=== PATIENT | male | born 1930 | race Caucasian/White ===

== ENCOUNTER 2017-07-13 09:45 | Outpatient (RCR) | payer MEDICARE, OTHER ==
[2016-10-25 09:56] VITALS: BMI 28.2
[~2017-07-13 09:45] MED LIST: ACET-2043 PO; ACET650T40 PO; ALBU8.5H IH; ALBU8.5H12 IH; ALE70 PO; AMOX-559 PO; AMOX1TAB9 PO; ASP81 PO; ASPI-1471 PO; ASPI-715 PO; CA C1TAB85 PO; CALC-515 PO; CALC-774 PO; CALC-854 PO; CALC200 PO; CEF300 PO; CEFU250S6 PO; CHOL200051 PO; CHOL200074 PO; CHOL500025 PO; CLI150 PO; CLIN150C15 PO; ENOX80DI8 SQ; ERGO500029 PO; EZET10TA41 PO; FAM20 PO; GLUCOSAMINE; GUAI600T57 PO; GUALA600 PO; HYDR12.558 PO; HYDROCHLOROTHIAZIDE PO; HYPR15DR27 OU; IBU600 PO; LOR5/325 PO; LUTE20CA11 PO; LUTE20TA PO; MELO-205 PO; METO25TA93 PO; MULTIVITAMIN; NAPR-1043 PO; OMEG-36 PO; PAN40 PO; PANT40TA65 PO; PRED-314 PO; PRED20TA6 PO; PROP60CA28 PO; ROS10 FT; ROS10 PO; ROSU20TA23 PO; SIMV10TA98 PO; SPIR1TAB26 PO; SPIR1TAB28 PO; SPIR25TA78 PO; TIO18R INH; TRIA10.8; TUM500 PO; UBID100T PO; UBID1CAP94 PO; UBID30CA27 PO; UBID50TA3 PO; WARF-18 PO; WARF7.5T32 PO; [UNRECOGNIZED DRUG - CODE] PO; [UNRECOGNIZED DRUG - CODE] PO; [UNRECOGNIZED DRUG - OTHER] PO
--- NOTE | 2017-07-15 10:37 | SWALLOW EVALUATION ---
SPEECH THERAPY ASSESSMENT Physician: Narendra Tobar Clinician: Piper Mart MS, CCC-MANAGER WORKERS COMPENSATION Type of Assessment: Dysphagia Evaluation Patient: Jermaine Rankin : 1930, 87yrs Evaluation Date: 07-13-17 BACKGROUND The patient is an 87 [address] male[address] An [address] swallow evaluation was ordered to further evaluate swallow structure and function. Pt has a MDHx significant for severe esophageal dysphagia with LPR with aspiration resulting in pneumonia within the last year. An MBS was performed on 07-07-17 with the following results: MBS Results 07-07-17 Aspiration Risk: Elevated d/t history of LPR with hospitalization d/t aspirated emesis resulting in pneumonia. Pt reports difficulty coordinating breath/ swallow/LPR with resulting aspiration. 1.Dysphagia Severity Rating Scale (Gramigna, 2006; Talha et. al., 1990): 3; Mild-moderate dysphagiapotential for aspiration exists but is diminished by specific swallow techniques and a modified diet. 2.No modification in consistency of diet is indicated. 3. Speech Therapy is recommended to address oral dysphagia with increased risk of aspiration d/t poor respiratory/swallow coordination. Oxygen Supplementation: 4 Level of Consciousness: Non altered Cognitive/Linguistic: intact Orientation: x4 Language: -expressive: nonaphasic -receptive: nonaphasic Speech: -non-apraxic -non-dysarthric Voice -Dysphonia: none -Nasal emission: No -Hypernasality: No -Wet Vocal Quality: No Non-verbal Oral Structure and Function: within functional limits for speech and swallow Pain with Swallow: Denies. ST ASSESSMENT SUMMARY DYSPHAGIA Outpatient Speech therapy for dysphagia treatment is indicated as medically necessary based on the results of the MBS. Speech Therapy is recommended to address oral dysphagia with increased risk of aspiration d/t poor respiratory/ swallow coordination. RECOMMENDATIONS 1. Speech Therapy: The patient would benefit from ST 2wk4 to address the above described concerns POC Short Term Goals Pt will demonstrate independence with strategies/techniques to manage LPR and respiratory/swallow coordination for decreased risk of aspiration. Social Media Senior Associate Goals Pt will demonstrate decreased risk of aspiration. Thank you for this referral. Please call [phone] Piper Mart M.S., CCC-MANAGER WORKERS COMPENSATION Physician Signature Date MTDD
[2017-07-28] MEDS ORDERED: WARF-18 PO (13:30)
== END 2017-07-13 18:00 | disposition home or self-care (01) ==
LOC: ST 09:45
PROVIDERS: ATTEND Internal Medicine
DX: R13.10 Dysphagia, unspecified (principal)

== ENCOUNTER 2017-09-16 01:32 | Day surgery (SDC) | payer MEDICARE, OTHER ==
[2016-10-25 09:56] VITALS: Ht 167.6 cm; Wt 78.5 kg
[~2017-09-16] VITALS: Ht 167.6 cm; Wt 78.5 kg
[2017-09-16] VITALS (7 sets, daily range): BP systolic 103–141; BP diastolic 61–75
[~2017-09-16 01:32] MED LIST changes: -WARF-18 PO; +WARF5TAB23 PO
[2017-09-16 11:03] LABS: INR 1.08
[2017-09-16] MEDS ORDERED: METO25TA23 PO (13:46)
[2017-09-16] MEDS ORDERED: ALBUTEROL/IPRATROPIUM 3 ML NEB ONE (13:47)
[2017-09-16] MEDS ORDERED: LIDOCAINE/SOD BICARB 8.4% SYR ID ONE (13:50)
[2017-09-16] MEDS ORDERED: MIDAZOLAM 2 MG/2 ML VIAL IVP PRN (13:50)
[2017-09-16] MEDS ORDERED: NORMOSOL R SOLN(*) 1000 ML BAG 1,000 ML IV PRN (13:50)
== END 2017-09-16 17:20 | disposition home or self-care (01) ==
LOC: OR 01:32
PROVIDERS: ATTEND Internal Medicine Gastroenterology
DX: K44.9 Diaphragmatic hernia without obstruction or gangrene (principal); K20.9 Esophagitis, unspecified; K29.70 Gastritis, unspecified, without bleeding; K31.7 Polyp of stomach and duodenum; K22.2 Esophageal obstruction
CPT/HCPCS: 36415; 43239; 43248; 85610; 88305; 88313; 88344; 94640; J7620

== ENCOUNTER 2017-10-14 01:28 | Day surgery (SDC) | payer MEDICARE, OTHER ==
[2016-10-25 09:56] VITALS: Ht 167.6 cm; Wt 78.5 kg
[~2017-10-14] VITALS: Ht 167.6 cm; Wt 78.5 kg
[2017-10-14] VITALS (7 sets, daily range): BP systolic 96–122; BP diastolic 54–74
[~2017-10-14 01:28] MED LIST changes: +METO25TA23 PO; +WARF7.5T13 PO; -WARF7.5T32 PO
[2017-10-14 11:56] LABS: INR 1.05
[2017-10-14] MEDS ORDERED: LIDOCAINE/SOD BICARB 8.4% SYR ID ONE (12:05)
[2017-10-14] MEDS ORDERED: NORMOSOL R SOLN(*) 1000 ML BAG 1,000 ML IV PRN (12:05)
[2017-10-14] MEDS ORDERED: LIDOCAINE MPF 1% 5 ML VIAL ONE (12:24)
[2017-10-14] MEDS ORDERED: PROPOFOL EMUL(*) 10MG/ML 20 ML 40 ML ONE (12:24)
[2017-10-14] MEDS ORDERED: DIATRIZOATE MEGL/DIATRIZOA SOD 367 MG/ML SOLN ONE (14:20)
--- NOTE | 2017-10-14 15:42 | RADIOLOGY IMAGING REPORT ---
FACILITY: [facility] - [place] PATIENT NAME: Jermaine Rankin : 1930 MR: [id number] V: [id number] EXAM DATE: ORDERING PHYSICIAN: FLORINA PURCELL TECHNOLOGIST: Location: [facility] [place] Patient: Jermaine Rankin : 1930 Visit/Account:[id number] Date of Sevice: 10/14/2017 EXAMINATION: CT chest without IV contrast HISTORY: Status post esophageal dilatation, mucosal tear/disruption noted during the dilatation. E xclude esophageal perforation. Clip placed under endoscopy in region of the mucosal tear. TECHNIQUE: CT was obtained through the chest without intravenous contrast. Sagittal and coronal MP R reformatted images were generated. Oral contrast was ingested. One of the following dose optimization techniques was utilized in the performance of this exam: autom ated exposure control; adjustment of the mA and/or kV according to patient size; or use of iterative reconstruction technique. Specific details can be referenced in the facility's radiology CT exam ope rational policy. COMPARISON: October 27, 2016 FINDINGS: Lower neck: Normal. Heart / pericardium/aorta/great vessels: Aortic annulus and potential aortic valve calcification. C oronary artery calcifications. Mildly aneurysmal ascending aorta measures 4.7 cm similar to prior. Mediastinum: Contrast within the esophagus. No extraluminal contrast extravasation. Small to modera te sized hiatal hernia as before. A clip is present within the lumen of the distal esophagus, coronal image 58. Equivocal thickening o f the distal esophageal wall, coronal image 59. Lymph node assessment: Tiny calcified lymph node lateral to the mid to lower esophagus on the left, a xial image 52. No enlarged or abnormal appearing lymph nodes. Pleura: Trace unchanged left pleural fluid versus chronic pleural thickening. Lungs: Mild unchanged emphysema. Unchanged curvilinear scarring in the left upper lobe. Mild right and minimal left peripheral groundglass opacification in the lower lobes. This is unchanged on the left. There was more extensive opacification of the right lower lobe on the prior which limits evalu ation for interval change on the right. Upper abdomen: Punctate right renal calculus noted. Chest wall: Normal. Musculoskeletal: No fracture or osseous destruction. IMPRESSION: 1. No esophageal perforation identified. 2. Endoscopically placed clip within the distal esophageal lumen. 3. Small to moderate-sized unchanged hiatal hernia. 4. Mild emphysema. 5. Right greater than left peripheral lower lobe groundglass opacification which may represent atele ctasis or mild pulmonary fibrosis. 6. Unchanged mildly aneurysmal ascending aorta measuring 4.7 cm. Report Dictated By: Solomon Brantley MD at 10/14/2017 3:24 PM Report E-Signed By: Solomon Brantley MD at 10/14/2017 3:38 PM WSN:[email or web address]
== END 2017-10-14 16:00 | disposition home or self-care (01) ==
LOC: OR 01:28
PROVIDERS: ATTEND Internal Medicine Gastroenterology
DX: K44.9 Diaphragmatic hernia without obstruction or gangrene (principal); K20.9 Esophagitis, unspecified; K22.2 Esophageal obstruction; K29.70 Gastritis, unspecified, without bleeding
CPT/HCPCS: 36415; 43239; 43249; 71250; 85610; J2001; J2704

== ENCOUNTER 2017-11-11 00:26 | Day surgery (SDC) | payer MEDICARE, OTHER ==
[2016-10-25 09:56] VITALS: Ht 167.6 cm; Wt 78.9 kg
[~2017-11-11] VITALS: Ht 167.6 cm; Wt 78.9 kg
[2017-11-11] MEDS ORDERED: NORMOSOL R SOLN(*) 1000 ML BAG 1,000 ML IV PRN (11:30)
[2017-11-11] MEDS ORDERED: LIDOCAINE/SOD BICARB 8.4% SYR ID ONE (11:30)
[2017-11-11] MEDS ORDERED: PROPOFOL EMUL(*) 10MG/ML 20 ML 20 ML ONE (11:37)
[2017-11-11 12:01] VITALS: BP 130/81
[2017-11-11 12:40] VITALS: BP 82/54
[2017-11-11 13:15] VITALS: BP 109/65
[2017-11-11 13:45] VITALS: BP 119/67
[2017-11-11 13:46] VITALS: BP 120/68
== END 2017-11-11 14:09 | disposition home or self-care (01) ==
LOC: OR 00:26
PROVIDERS: ATTEND Internal Medicine Gastroenterology
DX: K44.9 Diaphragmatic hernia without obstruction or gangrene (principal); K20.9 Esophagitis, unspecified; K22.2 Esophageal obstruction; K29.70 Gastritis, unspecified, without bleeding
CPT/HCPCS: 43249; J2704

== ENCOUNTER 2017-12-09 00:49 | Day surgery (SDC) | payer MEDICARE, OTHER ==
[2016-10-25 09:56] VITALS: Ht 167.6 cm; Wt 78.0 kg
[~2017-12-09] VITALS: Ht 167.6 cm; Wt 78.0 kg
[2017-12-09] VITALS (8 sets, daily range): BP systolic 98–128; BP diastolic 60–78
[2017-12-09] MEDS ORDERED: LIDOCAINE/SOD BICARB 8.4% SYR ID ONE (09:30)
[2017-12-09] MEDS ORDERED: NORMOSOL R SOLN(*) 1000 ML BAG 1,000 ML IV PRN (09:30)
[2017-12-09] MEDS ORDERED: PROPOFOL EMUL(*) 10MG/ML 20 ML 40 ML ONE (09:58)
[2018-02-09] MEDS ORDERED: PROP60TA15 PO (09:56)
[2018-02-11] MEDS ORDERED: PROP60TA15 PO (14:49)
== END 2017-12-09 12:40 | disposition home or self-care (01) ==
LOC: OR 00:49
PROVIDERS: ATTEND Internal Medicine Gastroenterology
DX: K22.2 Esophageal obstruction (principal); K44.9 Diaphragmatic hernia without obstruction or gangrene; K31.7 Polyp of stomach and duodenum; G47.33 Obstructive sleep apnea (adult) (pediatric); I71.2 Thoracic aortic aneurysm, without rupture; K29.70 Gastritis, unspecified, without bleeding; H35.30 Unspecified macular degeneration; I50.9 Heart failure, unspecified; I11.0 Hypertensive heart disease with heart failure; E78.00 Pure hypercholesterolemia, unspecified; R60.0 Localized edema; Z86.711 Personal history of pulmonary embolism; Z79.01 Long term (current) use of anticoagulants; Z99.81 Dependence on supplemental oxygen
CPT/HCPCS: 43249; C1726; J2704

== ENCOUNTER 2018-01-25 13:51 | Emergency (ER) | payer MEDICARE, OTHER ==
[2016-10-25 09:56] VITALS: BMI 28.2
--- NOTE | 2018-01-25 14:20 | ER Report ---
History and Physical Time Seen By MD: 14:05 Hx. of Stated Complaint: pt was excersizing around 7:30 this morning, and when he went to sit up he was unable to do so. pt states he had vertigo. pt vomitted. then went to lay down for a bit. (AMAN VENTURA MD) HPI/ROS CHIEF COMPLAINT: Weakness and vertigo HISTORY OF PRESENT ILLNESS: Patient is a very pleasant 88-year-old male who presents to the emergency department with complaint of generalized weakness and positional vertigo that began at 7:45 AM this morning. Patient states he went to bed feeling normally and woke up feeling normal. He states he was doing his morning exercises in bed which are leg strengthening exercises such as leg lifts and stretching. When he finished at 745 he tried to get out of bed but felt weak and felt extremely dizzy with the room spinning when he tried to get up. He noticed that whenever he would move the symptoms seem to get worse. So he remained in bed for approximately 4 hours. After that he decided to come to the emergency department. The dizziness seems to be somewhat better. He noticed no other symptoms. Patient states that he "talked to himself" to make sure his speech appeared normal. He denied any sensory findings other than the vertigo. He denied any focal or unilateral weakness. Patient does have a history of some cardiac dysrhythmias and a PE in 2013 and is currently anticoagulated with Coumadin. His last INR on January 10 was 1.9. REVIEW OF SYSTEMS: Constitutional: No fever, no chills. Eyes: No discharge. ENT: No sore throat. Cardiovascular: No chest pain, no palpitations. Respiratory: No cough, no shortness of breath. Gastrointestinal: Nausea with one episode of vomiting Genitourinary: No hematuria. Musculoskeletal: No back pain. Skin: No rashes. Neurological: Positional vertigo and generalized weakness (AMAN VENTURA MD) Allergies: Coded Allergies: ciprofloxacin (Verified Allergy, Intermediate, BEHAVORIAL CHANGES, 10/24/16) levofloxacin (Verified Allergy, Intermediate, "MESSED WITH MY MIND", ) Home Meds Active Scripts Meclizine Hcl (MECLIZINE HCL) 25 Mg Tablet, 25 MG PO Q8-12H Y for DIZZINESS, # 21 MG Prov:MANSI LLOYD DO 01/25/18 Warfarin Sodium (WARFARIN SODIUM) 5 Mg Tablet, 1 TAB PO QDAY, #30 TAB 9 Refills Take 1 tab daily Prov:RILEY RICHARDS MD 07/28/17 Albuterol Sulfate 90 Mcg/Act (PROAIR HFA 90 MCG/ACT) 8.5 Gm Hfa.aer.ad, 2 PUFF IH Q4-6H, #1 INHALER 8 Refills Prov:RILEY RICHARDS MD 06/24/17 Spironolact/Hydrochlorothiazid (SPIRONOLACTONE-HCTZ 25-25 TAB) 1 Each Tablet, 0.5 TAB PO QDAY, #45 TAB 3 Refills Prov:RILEY RICHARDS MD 06/14/17 Pantoprazole Sodium (PANTOPRAZOLE SODIUM) 40 Mg Tablet.dr, 1 TAB PO QDAY, #180 TAB.SR 4 Refills Prov:RILEY RICHARDS MD 03/01/17 Reported Medications Metoprolol Succinate (METOPROLOL SUCCINATE) 25 Mg Tab.er.24h, 1 TAB PO BID, TAB 09/16/17 Cholecalciferol (Vitamin D3) (D-2000) 2,000 Unit Capsule, 2000 UNIT PO QDAY, CAPSULE 06/24/17 Ubidecarenone (COENZYME Q10) 100 Mg Tablet, 100 MG PO QDAY 06/24/17 Ezetimibe (ZETIA) 10 Mg Tablet, 10 MG PO QDAY, TAB 04/21/17 Calcium Carbonate (TUMS) 200 Mg Tab.chew, 1 TAB.CHEW PO QDAY Y for GAS, TAB.CHEW 07/31/15 Acetaminophen (ACETAMINOPHEN) 500 Mg Tablet, 1 TAB PO Q4-6H Y for PAIN, TAB 07/31/15 Lutein (LUTEIN) 20 Mg Tablet, 1 TAB PO QDAY 07/31/15 Guaifenesin (MUCINEX) 600 Mg Tablet.er, 600 MG PO QAM 03/19/14 Hypromellose (ARTIFICIAL TEARS) 15 Ml Drops, 1-2 ML OU Y for DISCOMFORT 11/08/13 Past Medical/Surgical History Past medical history for peripheral neuropathy, macular degeneration, history of cardiac dysrhythmias with frequent trigeminy, history of peripheral edema, hyperlipidemia, hypertension, thoracic aortic aneurysm, COPD, pulmonary embolism in 2013, gastroesophageal reflux disease, history of mild chronic renal failure with baseline creatinine of 1.3-1.5. (AMAN VENTURA MD) Hx Smoking: Yes Smoking Status: Former Smoker Exposure to Second Hand Smoke?: No Hx Substance Use Disorder: No Hx Alcohol Use: No (AMAN VENTURA MD) Constitutional Vital Sign - Last 24 Hours 01/25/18 01/25/18 01/25/18 01/25/18 13:56 14:00 14:15 14:30 Pulse 72 67 64 64 Resp 18 22 9 30 B/P (MAP) 143/83 125/67 (86) Pulse Ox 93 98 99 O2 Delivery Nasal Cannula 01/25/18 01/25/18 01/25/18 01/25/18 15:11 15:15 15:30 15:45 Pulse 54 55 55 Resp 14 13 17 B/P (MAP) 119/75 (90) 118/69 (85) 117/66 (83) 115/67 (83) Pulse Ox 99 99 98 Intake and Output 01/25/18 01/25/18 01/26/18 15:00 23:00 07:00 Intake Total 500 ml Balance 500 ml (LAURORA,MANSI V DO) Physical Exam General/Constitutional: Patient is awake, alert, nontoxic and in no acute respiratory distress. Head: Normocephalic and atraumatic. Eyes: Conjunctival clear, Pupils are equal and reactive to light. Extraocular muscles are intact and symmetrical. Sclera are clear and anicteric. Ears:External canals are clear. Tympanic membranes are clear with normal landmarks and light reflex. Nares: No rhinorrhea or bleeding. Turbinates are pink and moist. Oropharyngeal: Mucous membranes are moist. There is no pharyngeal erythema or exudate. There are no palatal petechiae. Uvula is midline and symmetrical. Neck: Supple, no adenopathy. Cardiovascular: Heart is regular rate and rhythm without audible murmurs, rubs or gallops. Pulmonary: Lungs are clear to auscultation bilaterally. There are no wheezes, rales, or rhonchi. Chest rise is symmetrical Abdomen: Soft, nontender, no guarding or peritoneal signs. Extremities: No gross deformities, No peripheral cyanosis. Able to move all 4 extremities. Neuro: Alert and oriented X3, Cranial nerves 2 thru 12 are intact and symmetrical. Patient has normal gait. Skin: No rashes, skin is warm dry and well perfused. NIH Stroke Scale: 0 Level of consciousness: Alert -0 Answers both questions correctly-0 Performs both tasks correctly-0 Best Gaze: Normal-0 Visual: No visual loss-0 Facial Palsy: Normal, symmetrical movements-0 Motor Left Arm: No drift for 10 seconds-0 Motor Right Arm: No drift for 10 seconds-0 Motor Left Leg: No drift for 5 seconds-0 Motor Right Leg: No drift for 5 seconds-0 Limb Ataxia: Absent-0 Sensory: Normal, no sensory loss-0 Best Language: Normal, no aphasia-0 Dysarthria: Normal-0 Extinction and Inattention: No abnormality-0 (AMAN VENTURA MD) Medical Decision Making Data Points Result Diagram: 01/25/18 1439 01/25/18 1439 Laboratory Hematology Test 01/25/18 14:39 Red Blood Count 5.13 M/uL (4.00-5.60) Mean Corpuscular Volume 94.3 fL (80.0-96.0) Mean Corpuscular Hemoglobin 31.5 pg (26.0-33.0) Mean Corpuscular Hemoglobin Concent 33.4 g/dL (32.0-36.0) Red Cell Distribution Width 15.5 % (11.5-14.5) Mean Platelet Volume 8.2 fL (7.2-11.1) Neutrophils (%) (Auto) 78.5 % (39.4-72.5) Lymphocytes (%) (Auto) 12.4 % (17.6-49.6) Monocytes (%) (Auto) 8.2 % (4.1-12.4) Eosinophils (%) (Auto) 0.5 % (0.4-6.7) Basophils (%) (Auto) 0.4 % (0.3-1.4) Nucleated RBC Relative Count (auto) 0.0 /100WBC Neutrophils # (Auto) 5.1 K/uL (2.0-7.4) Lymphocytes # (Auto) 0.8 K/uL (1.3-3.6) Monocytes # (Auto) 0.5 K/uL (0.3-1.0) Eosinophils # (Auto) 0.0 K/uL (0.0-0.5) Basophils # (Auto) 0.0 K/uL (0.0-0.1) Nucleated RBC Absolute Count (auto) 0.00 K/uL Prothrombin Time 26.5 seconds (12.0-14.4) Prothromb Time International Ratio 2.39 Activated Partial Thromboplast Time 44 seconds (23-35) Sodium Level 139 mmol/L (137-145) Potassium Level 4.6 mmol/L (3.5-5.0) Chloride Level 99 mmol/L (98-107) Carbon Dioxide Level 33 mmol/L (22-30) Blood Urea Nitrogen 24 mg/dl (9-21) Creatinine 1.30 mg/dl (0.66-1.25) Glomerular Filtration Rate Calc 52.2 Random Glucose 120 mg/dl (75-110) Calcium Level 9.0 mg/dl (8.4-10.2) Total Bilirubin 0.5 mg/dl (0.2-1.3) Aspartate Amino Transf (AST/SGOT) 28 U/L (0-35) Alanine Aminotransferase (ALT/SGPT) 33 U/L (0-56) Alkaline Phosphatase 65 U/L (0-126) Troponin I < 0.012 ng/ml Total Protein 6.4 g/dl (6.3-8.2) Albumin 3.5 g/dl (3.5-5.0) Chemistry Test 01/25/18 14:39 White Blood Count 6.5 k/uL (4.5-11.0) Red Blood Count 5.13 M/uL (4.00-5.60) Hemoglobin 16.2 g/dL (14.0-18.0) Hematocrit 48.4 % (42.0-52.0) Mean Corpuscular Volume 94.3 fL (80.0-96.0) Mean Corpuscular Hemoglobin 31.5 pg (26.0-33.0) Mean Corpuscular Hemoglobin Concent 33.4 g/dL (32.0-36.0) Red Cell Distribution Width 15.5 % (11.5-14.5) Platelet Count 119 K/uL (150-450) Mean Platelet Volume 8.2 fL (7.2-11.1) Neutrophils (%) (Auto) 78.5 % (39.4-72.5) Lymphocytes (%) (Auto) 12.4 % (17.6-49.6) Monocytes (%) (Auto) 8.2 % (4.1-12.4) Eosinophils (%) (Auto) 0.5 % (0.4-6.7) Basophils (%) (Auto) 0.4 % (0.3-1.4) Nucleated RBC Relative Count (auto) 0.0 /100WBC Neutrophils # (Auto) 5.1 K/uL (2.0-7.4) Lymphocytes # (Auto) 0.8 K/uL (1.3-3.6) Monocytes # (Auto) 0.5 K/uL (0.3-1.0) Eosinophils # (Auto) 0.0 K/uL (0.0-0.5) Basophils # (Auto) 0.0 K/uL (0.0-0.1) Nucleated RBC Absolute Count (auto) 0.00 K/uL Prothrombin Time 26.5 seconds (12.0-14.4) Prothromb Time International Ratio 2.39 Activated Partial Thromboplast Time 44 seconds (23-35) Glomerular Filtration Rate Calc 52.2 Calcium Level 9.0 mg/dl (8.4-10.2) Total Bilirubin 0.5 mg/dl (0.2-1.3) Aspartate Amino Transf (AST/SGOT) 28 U/L (0-35) Alanine Aminotransferase (ALT/SGPT) 33 U/L (0-56) Alkaline Phosphatase 65 U/L (0-126) Troponin I < 0.012 ng/ml Total Protein 6.4 g/dl (6.3-8.2) Albumin 3.5 g/dl (3.5-5.0) Coagulation Test 01/25/18 14:39 Prothrombin Time 26.5 seconds Prothromb Time International Ratio 2.39 Activated Partial Thromboplast Time 44 seconds (MANSI LLOYD DO) EKG/Imaging Monitor Interpretation: Normal Sinus Rhythm (AMAN VENTURA MD) ED Course/Re-evaluation Clinical Indication for ER IV: IV Access ED Course 01/25/2018 2:45:42 pm Patient with the NIH stroke scale of 0. History and physical exam more consistent with positional vertigo however the patient does have a history of thromboembolic events. My plan at this time would be to perform a CT scan without contrast to look for any type of hemorrhagic or early signs of stroke. Is negative I would move onto an MRI of the brain to rule out any type of stroke. If negative I would discharge the patient home with a diagnosis of benign positional vertigo (AMAN VENTURA MD) Decision to Disposition Date: Jan 25, 2018 Decision to Disposition Time: 17:07 (MANSI LLOYD DO) Depart Departure Latest Vital Signs Vital Signs Date Time Temp Pulse Resp B/P (MAP) Pulse Ox O2 Delivery O2 Flow Rate FiO2 01/25/18 15:45 55 17 115/67 (83) 98 01/25/18 13:56 Nasal Cannula (MANSI LLOYD DO) Impression: Primary Impression: BPPV (benign paroxysmal positional vertigo) Condition: Improved Disposition: HOME OR SELF-CARE Referrals: RILEY RICHARDS MD (PCP) 2 Days JEFFREY MTZ JR, MD New Scripts Meclizine Hcl (MECLIZINE HCL) 25 Mg Tablet 25 MG PO Q8-12H Y for DIZZINESS, #21 MG Prov: MANSI LLOYD DO 01/25/18 Patient Instructions: Dizziness (GEN) Additional Instructions: Your imaging was stable. No signs of an acute stroke or TIA/ministroke. Follow up with ENT specialist, Dr. Mtz if symptoms continue Meclizine one every 8 hours as needed for dizziness. Return as needed. Problem Qualifiers Primary Impression: BPPV (benign paroxysmal positional vertigo) Laterality: unspecified laterality Qualified Codes: H81.10 - Benign paroxysmal vertigo, unspecified ear AMAN VENTURA MD Jan 25, 2018 14:20 MANSI LLOYD DO Jan 25, 2018 17:06
--- NOTE | 2018-01-25 14:22 | EKG ---
FACILITY: [facility] - [place] PATIENT NAME: GENARO GREENFIELD : [id number] MR: [id number] V: [id number] EXAM DATE: ORDERING PHYSICIAN: AMAN VENTURA TECHNOLOGIST: PARIS Vivar Reason : TIA PRECAUTIONS Blood Pressure : / mmHG Vent. Rate : 063 BPM Atrial Rate : 063 BPM P-R Int : 178 ms QRS Dur : 088 ms QT Int : 402 ms P-R-T Axes : 039 -38 013 degrees QTc Int : 411 ms Normal sinus rhythm Left axis deviation No ST-T abnormalities Relatively unchanged from previous Confirmed by JESSICA GARNETT ([id number]) on 01/25/2018 4:16:57 PM Referred By: LORENZO Confirmed By:JESSICA GARNETT
[2018-01-25] MEDS ORDERED: NS(*) 0.9% 500 ML BAG 500 ML IV ONE (14:50)
[2018-01-25] MEDS ORDERED: MECLIZINE HCL 25 MG TAB PO ONE ×2 (14:50→17:05)
[2018-01-25 14:51] LABS: PLATELET COUNT, AUTOMATED 119 K/uL (150-450)
[2018-01-25 15:05] LABS: INR 2.39
--- NOTE | 2018-01-25 15:22 | RADIOLOGY IMAGING REPORT ---
FACILITY: [facility] - [place] PATIENT NAME: Jermaine Rankin : 1930 MR: [id number] V: [id number] EXAM DATE: ORDERING PHYSICIAN: AMAN VENTURA TECHNOLOGIST: Location: [facility] - [place] Patient: Jermaine Rankin : 1930 Visit/Account:[id number] Date of Sevice: 01/25/[address] scan without contrast COMPARISONS: None ADDITIONAL PERTINENT HISTORY: Weakness TECHNIQUE: Multiple axial images were obtained from the skull base to the vertex without IV contrast . One of the following dose optimization techniques was utilized in the performance of this exam: Aut omated exposure control; adjustment of the mA and/or kV according to the patient's size; or use of an iterative reconstruction technique. Specific details can be referenced in the facility's radiology CT exam operational policy. FINDINGS: Midline shift: Negative Ventricles: Mild enlargement of the lateral and third ventricles. Otherwise negative Brain parenchyma: Patchy hypoattenuation within the periventricular and subcortical white matter, no nspecific but likely representing small vessel ischemic change on a chronic basis. No intraparenchyma l hemorrhage or mass effect. Extra-axial spaces: Mild cerebral atrophy. Intracranial vasculature: Cavernous internal carotid and distal vertebral artery calcifications. Oth erwise negative Osseous structures: Negative Paranasal sinuses and mastoid air cells: Negative Surrounding soft tissues and orbits: Negative IMPRESSION: 1. Age related changes as described above. 2. No evidence of acute intracranial pathology. Report Dictated By: Ray Morales MD at 01/25/2018 3:16 PM Report E-Signed By: Ray Morales MD at 01/25/2018 3:19 PM WSN:[id number]
--- NOTE | 2018-01-25 16:52 | RADIOLOGY IMAGING REPORT ---
FACILITY: [facility] PATIENT NAME: Jermaine Rankin : 1930 MR: [id number] V: [id number] EXAM DATE: ORDERING PHYSICIAN: MANSI LLOYD TECHNOLOGIST: Location: [facility] Patient: Jermaine Rankin : 1930 Visit/Account:[id number] Date of Sevice: 01/25/2018 BRAIN W/O CONTRAST Comparisons: Report from previous exam dated August 05, 2007 Additional pertinent history: Dizziness TECHNIQUE: Multiplanar, multisequence brain MRI was performed without gadolinium contrast. FINDINGS: Sagittal midline structures and craniocervical junction: Negative. Midline shift: None. Ventricles: Mild enlargement of the lateral and third ventricles. Otherwise negative Brain parenchyma: Diffusion weighted imaging: Negative. Gradient sequence: Negative. T2 weighted FLAIR images: Scattered foci of abnormal increased T2 signal within the periventricular and subcortical white matter, nonspecific but likely representing small vessel ischemic change on a chronic basis. Extra-axial spaces: Negative. Dural venous sinuses and major arterial flow voids: Negative. Mastoid air cells and paranasal sinuses: Negative. Surrounding soft tissues and orbits: Negative. Impression: 1. Age related changes as described above. 2. No evidence of acute intracranial pathology. Report Dictated By: Ray Morales MD at 01/25/2018 4:45 PM Report E-Signed By: Ray Morales MD at 01/25/2018 4:48 PM WSN:[id number]
[2018-01-25 17:00] VITALS: BP 119/72
[2018-01-25] MEDS ORDERED: MECL25TA9 PO (17:05)
== END 2018-01-25 17:18 | disposition home or self-care (01) ==
LOC: ER 14:03
DX: H81.10 Benign paroxysmal vertigo, unspecified ear (principal)
CPT/HCPCS: 70450; 70551; 84484; 85025; 85610; 85730; 93005; 96360; 99285; J7040; J8597; 82040; 82247; 82310; 82374; 82435; 82565; 82947; 84075; 84132; 84155; 84295; 84450; 84460; 84520

== ENCOUNTER → 2018-02-15 | Outpatient (CLI) | payer MEDICARE, OTHER ==
[2016-10-25 09:56] VITALS: BMI 28.2
[~2018-02-15] MED LIST changes: +MECL25TA9 PO; +PROP60TA15 PO
--- NOTE | 2018-02-15 14:52 | RADIOLOGY IMAGING REPORT ---
FACILITY: [facility] - [place] PATIENT NAME: Jermaine Rankin : 1930 MR: [id number] V: [id number] EXAM DATE: ORDERING PHYSICIAN: RILEY RICHARDS TECHNOLOGIST: Location: [facility] - [place] Patient: Jermaine Rankin : 1930 Visit/Account:[id number] Date of Sevice: 02/15/2018 Exam type: KNEE 3 VIEW RIGHT History: rt. knee and hip pain Comparison: None. Findings: There is mild narrowing the right patellofemoral joint. No significant narrowing identified along th e medial lateral compartments. This is suggestion of subtle chondrocalcinosis in the lateral compart ment. Mild beaking of the tibial spines. No evidence of acute fracture or dislocation. IMPRESSION: 1. Mild degenerative changes of the right knee as described predominantly involving the patellofemor al joint. Suggestion of subtle chondrocalcinosis of the lateral compartment Report Dictated By: Allison Funez MD at 02/15/2018 2:47 PM Report E-Signed By: Allison Funez MD at 02/15/2018 2:48 PM WSN:[email or web address]
--- NOTE | 2018-02-15 14:57 | RADIOLOGY IMAGING REPORT ---
FACILITY: [facility] [place] PATIENT NAME: Jermaine Rankin : 1930 MR: [id number] V: [id number] EXAM DATE: ORDERING PHYSICIAN: RILEY RICHARDS TECHNOLOGIST: Location: [facility] [place] Patient: Jermaine Rankin : 1930 Visit/Account:[id number] Date of Sevice: 02/15/2018 Exam type: HIP RIGHT History: rt. knee and hip pain Comparison: None. Findings: There is mild narrowing of the hip joints bilaterally. Two views of the right hip reveal no evidence of acute fracture or dislocation. There are moderate degenerative changes at the pubic symphysis an d in the visualized lower lumbar spine. Numerous calcified phleboliths are present in the pelvis IMPRESSION: 1. Mild narrowing the hip joints bilaterally. No evidence of acute fracture-dislocation involving t he right hip Report Dictated By: Allison Funez MD at 02/15/2018 2:51 PM Report E-Signed By: Allison Funez MD at 02/15/2018 2:52 PM WSN:JANES
== END ==
LOC: RAD 11:41
PROVIDERS: ATTEND Internal Medicine
DX: M16.0 Bilateral primary osteoarthritis of hip (principal); M17.11 Unilateral primary osteoarthritis, right knee

== ENCOUNTER 2018-02-17 02:10 | Day surgery (SDC) | payer MEDICARE, OTHER ==
[2016-10-25 09:56] VITALS: Ht 167.6 cm; Wt 78.5 kg
[~2018-02-17] VITALS: Ht 167.6 cm; Wt 78.5 kg
[2018-02-17] VITALS (8 sets, daily range): BP systolic 96–117; BP diastolic 55–80
[2018-02-17] MEDS ORDERED: LIDOCAINE/SOD BICARB 8.4% SYR ID ONE (11:30)
[2018-02-17] MEDS ORDERED: NORMOSOL R SOLN(*) 1000 ML BAG 1,000 ML IV PRN (11:30)
== END 2018-02-17 13:15 | disposition home or self-care (01) ==
LOC: OR 02:10
PROVIDERS: ATTEND Internal Medicine Gastroenterology
DX: K20.9 Esophagitis, unspecified (principal); K44.9 Diaphragmatic hernia without obstruction or gangrene; K22.2 Esophageal obstruction; K29.70 Gastritis, unspecified, without bleeding

== ENCOUNTER 2018-03-22 13:45 | Outpatient (RCR) | payer MEDICARE, OTHER ==
[2016-10-25 09:56] VITALS: BMI 28.2
--- NOTE | 2018-02-02 09:29 | PT INITIAL EVALUATION ---
MEDICAL DIAGNOSIS: M79.604 B LE pain TREATMENT DIAGNOSIS: Same, R hip OA DATE OF ONSET: 07/26/16 SUBJECTIVE: Jermaine Rankin (Bill) presents to PT for B hip to knee pain, R>L, insidious onset for years, worsening in the two last years. 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 He would like to reduce his R hip pain most of all, as sitting > 1 hour, arising from the floor, donning socks and stair climbing bother his R hip and IT band. Hip FOTO 46%. Pain location is R hip joint and IT band, L hip to IT band and described as ache, stiffness. Pain scale is 2/10 at rest, 4/10 with aggravating activities. REHAB PROBLEM LIST: Increased Pain Decreased ROM Decreased Strength Decreased Mobility Decreased Gait PREVIOUS MEDICAL HISTORY: PE's (O2 3l/min /), GERD, TURP, L ankle fracture with surgery. OCCUPATION: Retired, lives alone, does all house and yard work, independent in all ADL's. OBJECTIVE: Posture: Trunk flexed ~ 20 degrees, heels 4" apart, even WB through LE's. ROM: Hip PROM R/L flexion 110 (anterior pain)/130, rotation at 90 deg. flexion IR 15 (joint pain)/30, ER 40 (posterior pain)/55 degrees. Strength: R hip abduction 4/5, pain in the joint, L 5-/5, pain free. Palpation: Tender in the IT bands. Special Tests: Positive R hip scour and RICKEY for hip joint pain, negative Jersey' s B. Varus/valgus knees R Grade II/II laxity, L Grade I/II. Negative knees Jasper. Hamstring flexibility R 55 deg., L 60 degrees. Mobility: Hypomobile hip joints. Gait: Reduced B hip extension, feet pass each other and clear the floor, first 3-4 steps with hip stiffness. Balance: NT today. ASSESSMENT: Jermaine Rankin presents with R hip OA referring to the lateral and posterior hip, weakness, pain with donning socks, squatting, sitting. He's a good candidate to stretch and strengthen to reduce hip pain. Short Term Goals 4 weeks: Amador arises from the floor with R hip pain 1-2/10, ambulates with B hip extension 10 degrees. 6 weeks: Bill arises from the floor, donns socks with R hip pain 08/04, sits 2 hours with hip pain /10. Patient's Goals Find out if it's IT band tendinitis or hip problems (met-hip joint) and reduce pain with sitting, donning socks and arising from the floor. PLAN: Patient to be seen for Manual Therapy Strengthening/condition Ice/Heat Stretching Electrical Stim Posture/Body mechanics Gait Trg/Balance Trg Home Exercise Program 2x/Week for 6 Weeks Thank you for this referral. If you have any questions, comments, or concerns about this report or plan, please contact me at . [facility]
--- NOTE | 2018-03-14 17:29 | PT PLAN OF CARE ---
Physician: Dr. Narendra Tobar Patient is being seen: 2x/week Therapist: Linda Betts, PT Medical Diagnosis: M79.604 B LE pain Treatment Diagnosis: Same, R hip OA Date of Onset: 07/26/16 Date of Initial Evaluation: 02/01/18 Date patient was last seen: 03/10/18 Number of treatments: 10 Number of cancellations/No shows: 0 INTERVENTIONS: Manual Therapy, Strengthening/condition, Heat, Stretching, Electrical Stim, Home Exercise Program GOALS: 4 weeks: Amador arises from the floor with R hip pain 1-2/10 (progressing), ambulates with B hip extension 10 degrees (progressing). 6 weeks: Amador arises from the floor, donns socks with R hip pain 1/10, sits 2 hours with hip pain 2/10. (all not met) PATIENT'S GOAL: Find out if it's IT band tendinitis or hip problems (met-hip joint) and reduce pain with sitting, donning socks and arising from the floor (progressing). Patient Compliance: Excellent Prognosis: Good Reasons for continuing therapy: S: Amador rates R hip and IT band pain 1/10 with sitting, 3/10 with exercise, walking. Hip FOTO 36% impairment. Amador feels he has more IT band tendinitis, flared with treadmill and recumbent bike exercise, not hip joint problems. Posture: Upright trunk, heels 4" apart, even WB through LE's. ROM: Hip PROM R/L flexion 120 (anterior pain)/130, rotation at 90 deg. flexion IR 20 (joint pain)/30, ER 40 (posterior pain)/60 degrees. Strength: NT Palpation: Tender in the distal IT bands. Special Tests: Now mild symptoms with R hip scour and RICKEY improved to 80%, no joint pain. Hamstring flexibility improved to R 65 deg., L 60 degrees. R psoas continues to be tight. Mobility: Less hypomobile hip joints. A/P: Amador Rankin is improving flexibility, ROM, joint mobility and does have IT band tendinitis symptoms, as well as tight psoas muscles. He would benefit from continued PT to work muscle balancing, stretching, ROM so that he can tolerate pulmonary rehab classes, improve gait and mobility (arise from floor). If you agree, we'll continue at 2x/week another 6 weeks. Thank you. JULIETH
--- NOTE | 2018-03-22 14:47 | PT PLAN OF CARE ---
Physician: Dr. Narendra Tobar Patient is being seen: 2x/week Therapist: Linda Betts, PT Medical Diagnosis: M79.604 B LE pain Treatment Diagnosis: Same, R hip OA Date of Onset: 07/26/16 Date of Initial Evaluation: 02/01/18 Date patient was last seen: 03/22/18 Number of treatments: 12 Number of cancellations/No shows: 0 INTERVENTIONS: Manual Therapy, Strengthening/condition, Heat, Stretching, Electrical Stim, Home Exercise Program GOALS: 4 weeks: Amador arises from the floor with R hip pain 1-2/10 (not met), ambulates with B hip extension 10 degrees (progressing). 6 weeks: Amador arises from the floor, donns socks with R hip pain 1/10, sits 2 hours with hip pain 2/10. (all not met) PATIENT'S GOAL: Find out if it's IT band tendinitis or hip problems (met-hip joint) and reduce pain with sitting, donning socks and arising from the floor (not met). Patient Compliance: Excellent Prognosis: Good Reasons for discontinuing therapy: S: Amador relates getting off the ground, donning socks and doing pulmonary exercise is still as painful at the R hip and now lateral knee joint, 4/10 pain scale. He's tried bikes, treadmill at pulmonary rehab without changing hip pain. Posture: Upright trunk, heels 4" apart, even WB through LE's. ROM: Hip PROM R flexion 125 (anterior pain), rotation at 90 deg. flexion IR 30 (joint pain), ER 50. Strength: R hip abduction improved to 4+/5, pain in the joint, hip flexor 4/5. Palpation: Tender in the R distal IT band with mild crepitus. Special Tests: Positive R hip scour and RICKEY (85% ROM now) for hip joint pain, negative Jersey's B. Hamstring flexibility R 70 degrees. Mobility: R hip joint mobility improved but not full. Gait: Hip extension to 0 degrees, heel/toe pattern. A/P: Amador Rankin has improved ROM, flexibility but hasn't improved hip function. As he isn't progressing with function, I'll DC PT to HEP. Thank you. JULIETH
== END 2018-03-22 18:00 | disposition home or self-care (01) ==
LOC: PT 13:45
PROVIDERS: ATTEND Internal Medicine
DX: M79.605 Pain in left leg (principal); M79.604 Pain in right leg; M16.11 Unilateral primary osteoarthritis, right hip; M25.551 Pain in right hip; M25.552 Pain in left hip; Z99.81 Dependence on supplemental oxygen; Z86.711 Personal history of pulmonary embolism
CPT/HCPCS: 97010; 97110; 97140; 97162; G0283

== ENCOUNTER 2018-04-14 00:14 | Day surgery (SDC) | payer MEDICARE, OTHER ==
[2016-10-25 09:56] VITALS: Ht 167.6 cm; Wt 77.1 kg
[~2018-04-14] VITALS: Ht 167.6 cm; Wt 77.1 kg
[2018-04-14 08:45] VITALS: BP 127/67
[2018-04-14 08:51] LABS: INR 1.08
[2018-04-14] MEDS ORDERED: PROPOFOL EMUL(*) 10MG/ML 20 ML 20 ML ONE (08:51)
[2018-04-14] MEDS ORDERED: LIDOCAINE/SOD BICARB 8.4% SYR ID ONE (09:00)
[2018-04-14] MEDS ORDERED: NORMOSOL R SOLN(*) 1000 ML BAG 1,000 ML IV PRN (09:00)
[2018-04-14 10:22] VITALS: BP 89/59
[2018-04-14 10:45] VITALS: BP 107/70
[2018-04-14 11:14] VITALS: BP 106/68
[2018-04-14 11:19] VITALS: BP 112/59
[2018-04-14 11:21] VITALS: BP 106/63
== END 2018-04-14 11:45 | disposition home or self-care (01) ==
LOC: OR 00:14
PROVIDERS: ATTEND Internal Medicine Gastroenterology
DX: K44.9 Diaphragmatic hernia without obstruction or gangrene (principal); K20.9 Esophagitis, unspecified; K22.2 Esophageal obstruction; K29.70 Gastritis, unspecified, without bleeding; K31.7 Polyp of stomach and duodenum
CPT/HCPCS: 36415; 43249; 85610; C1726; J2704

== ENCOUNTER 2018-05-17 13:45 | Outpatient (RCR) | payer MEDICARE, OTHER ==
[2016-10-25 09:56] VITALS: BMI 28.2
--- NOTE | 2018-04-13 07:58 | PT INITIAL EVALUATION ---
MEDICAL DIAGNOSIS: R knee patellofemoral syndrome, effusion TREATMENT DIAGNOSIS: Same DATE OF ONSET: 07/26/16 SUBJECTIVE: Jermaine Rankin (Bill) returns to PT for R LE pain, more in the lateral R knee now versus his R hip, insidious onset for years, worsening in the two last years. He did PT with me for his R hip and IT band, but didn't respond fully and so saw Dr. Torres who prescribes PT for R patellofemoral syndrome and effusion. Amador has a neoprene sleeve he wears to control effusion. 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 He would like to reduce his R knee pain most of all, as sitting > 1 hour, arising from the floor, donning socks, walking on the treadmill 40 minutes in pulmonary rehab and stair climbing bother his R knee, hip and IT band. Pain location is R lateral knee, R hip joint and IT band, and described as ache, stiffness. Pain scale is 4/10 at rest, 6-7/10 with aggravating activities. REHAB PROBLEM LIST: Increased Pain Decreased ROM Decreased Strength Pain with Exercise Function Decreased Gait PREVIOUS MEDICAL HISTORY: PE's (O2 3l/min 15/02), GERD, TURP, L ankle fracture with surgery. OCCUPATION: Retired, lives alone, does all house and yard work, independent in all ADL's. OBJECTIVE: Posture: Mild scoliosis, knees 0 deg. with even WB through the LE's. ROM: R knee A/PROM 0/0 - 125/130, pain end ROM flexion. R Hip PROM flexion 130 (anterior pain), rotation at 90 deg. flexion IR 25 (joint pain), ER 40 (posterior pain). Strength: Moderate R VMO contraction with quad set, lateral tracking patella. Palpation: Painful Gerdy's tubercle, LCL, lateral retinaculum, not under the lateral patellar border. Special Tests: Positive R hip scour and RICKEY for hip joint pain, negative Jersey's. Varus/valgus knees R Grade II/II laxity. Negative knees Jasper. Hamstring flexibility R 65 degrees. Mild patellofemoral joint mobility at 25 degrees flexion, normal at 0 degrees. Gait: Hip extension to 0 degrees, heel/toe pattern. ASSESSMENT: Amador Rankin presents with improved hip PROM, less tight IT band and lateral tracking patella from muscle imbalance. He did well with manual therapy to the lateral R knee and will start on a patellofemoral strengthening program next visit. Short Term Goals 4 weeks: Amador uses treadmill with R knee pain 11/02. 6 weeks: Amador donns socks, uses treadmill with R knee pain 09/04. Patient's Goals Reduce pain with getting off the floor, donning socks, treadmill use. PLAN: Patient to be seen for Manual Therapy Strengthening/condition Ice/Heat Range of Motion Stretching Neuromuscular Re-ed Electrical Stim Gait Trg/Balance Trg Home Exercise Program 2x/Week for 6 Weeks Thank you for this referral. If you have any questions, comments, or concerns about this report or plan, please contact me at . MTDD
--- NOTE | 2018-05-17 18:03 | PT PLAN OF CARE ---
Physician: Dr. Fei Torres Patient is being seen: 2x/week Therapist: Lidna Betts, PT Medical Diagnosis: R knee patellofemoral syndrome, effusion Treatment Diagnosis: Same Date of Onset: 07/26/16 Date of Initial Evaluation: 04/12/18 Date patient was last seen: 05/12/18 Number of treatments: 8 Number of cancellations/No shows: 2 INTERVENTIONS: R knee stretching, strengthening, muscle balancing, HEP, hot/cold pack and e-stim GOALS: 4 weeks: Amador uses treadmill with R knee pain 4/10. not met 6 weeks: Amadro donns socks, uses treadmill with R knee pain 2/10. both not met PATIENT'S GOAL: Reduce pain with getting off the floor, donning socks, treadmill use. all not met Patient Compliance: Excellent Prognosis: Excellent Reasons for discontinuing therapy: S: Amador relates his R knee pain and R hip pain aren't improving and now he has stabbing R hip joint pain with twisting on his R LE. Knee FOTO 36% impairment (was 38% at evaluation). He isn't participating in pulmonary rehab as his hip and knee hurt too much with treadmill walking. Donning socks is still stiff and painful. Posture: Mild scoliosis, knees 0 deg. with even WB through the LE's. ROM: R knee A/PROM 0/0 - 120/125, pain end ROM flexion, 5 degrees less actively and passively. R Hip PROM flexion 130 (anterior pain), rotation at 90 deg. flexion IR improved to 30 deg. (joint pain), ER 50 (posterior pain). Strength: Still moderate R VMO contraction with quad set, less lateral tracking patella, quad 4/5, L 5-/5. Gait: Now with a SPC , feet almost pass each other, slower cadance. Twisting on R LE = R hip pain (new). Special Tests: Negative R hip scour and RICKEY, negative Jersey's. Hamstring flexibility R 75 degrees. Still tight patellofemoral joint >40 degrees. Passive SI tests, posterior to anterior pressure L2-L5 are unremarkable for hip symptoms, question of retrolisthesis at L2/3. A/P: Amador Rankin isn't tolerating stretching and strengthening and now has more severe R hip pain. Due to lack of progress, I'll DC PT. I've asked him to follow up with you. Thank you. JULIETH
== END 2018-05-17 18:00 | disposition home or self-care (01) ==
LOC: PT 13:45
PROVIDERS: ATTEND Orthopaedic Surgery
DX: M22.2X1 Patellofemoral disorders, right knee (principal); M25.461 Effusion, right knee; Z86.711 Personal history of pulmonary embolism; Z99.81 Dependence on supplemental oxygen
CPT/HCPCS: 97010; 97110; 97140; 97162; G0283

== ENCOUNTER → 2018-05-31 | Outpatient (CLI) | payer MEDICARE, OTHER ==
[2016-10-25 09:56] VITALS: BMI 28.2
== END ==
LOC: LAB 16:11
PROVIDERS: ATTEND Nurse Practitioner Primary Care
DX: R82.998 Other abnormal findings in urine (principal)
CPT/HCPCS: 36415; 82040; 82247; 82310; 82374; 82435; 82565; 82947; 84075; 84132; 84155; 84295; 84450; 84460; 84520

== ENCOUNTER → 2018-06-08 | Outpatient (CLI) | payer MEDICARE, OTHER ==
[2016-10-25 09:56] VITALS: BMI 28.2
[2018-06-08 12:07] LABS: INR 2.44
== END ==
LOC: LAB 10:30
PROVIDERS: ATTEND Pharmacist Pharmacotherapy
DX: I26.99 Other pulmonary embolism without acute cor pulmonale (principal); Z86.711 Personal history of pulmonary embolism
CPT/HCPCS: 36415; 85610

== ENCOUNTER → 2018-07-01 | Outpatient (CLI) | payer MEDICARE, OTHER ==
[2016-10-25 09:56] VITALS: BMI 28.2
== END ==
LOC: LAB 11:06
PROVIDERS: ATTEND Internal Medicine
DX: N18.3 Chronic kidney disease, stage 3 (moderate) (principal)
CPT/HCPCS: 81001

== ENCOUNTER 2018-08-04 01:41 | Day surgery (SDC) | payer MEDICARE, OTHER ==
[2016-10-25 09:56] VITALS: Ht 165.1 cm; Wt 76.2 kg
[~2018-08-04] VITALS: Ht 165.1 cm; Wt 76.2 kg
[2018-08-04] VITALS (8 sets, daily range): BP systolic 95–121; BP diastolic 58–78
[2018-08-04] MEDS ORDERED: PROPOFOL EMUL(*) 10MG/ML 20 ML 20 ML ONE (07:50)
[2018-08-04] MEDS ORDERED: NS(*) 0.9% 500 ML BAG 500 ML IV PRN (08:00)
[2018-08-04] MEDS ORDERED: LIDOCAINE/SOD BICARB 8.4% SYR ID ONE (08:00)
[2018-08-04 08:30] LABS: INR 1.05
== END 2018-08-04 10:45 | disposition home or self-care (01) ==
LOC: OR 01:41
PROVIDERS: ATTEND Internal Medicine Gastroenterology
DX: K44.9 Diaphragmatic hernia without obstruction or gangrene (principal); K20.9 Esophagitis, unspecified; K22.2 Esophageal obstruction; K21.9 Gastro-esophageal reflux disease without esophagitis; Z86.711 Personal history of pulmonary embolism; Z79.01 Long term (current) use of anticoagulants
CPT/HCPCS: 36415; 43239; 43249; 85610; 88305; 88313; C1726; J2704; J7040

== ENCOUNTER 2018-08-30 13:45 | Outpatient (RCR) | payer MEDICARE, OTHER ==
[2016-10-25 09:56] VITALS: BMI 28.2
--- NOTE | 2018-06-02 15:41 | PT INITIAL EVALUATION ---
MEDICAL DIAGNOSIS: R hip greater trochanteric bursitis, IT band irritation TREATMENT DIAGNOSIS: R hip greater trochanteric bursitis, Lumbar dysfunction, Generalized weakness DATE OF ONSET: 05/27/18 SUBJECTIVE: Amador is a 88 year old male who reports R leg knee and hip pain onset of 6 months ago getting progressively worse. Pt received a steroid injection a week ago in the R trochanteric bursa with improvement of pain following. Pt has a history of B pulmonary embolisms and is currently in cardiopulmonary class. Pt also states that he has a leg length discrepancy with his R leg shorter as well as a history of scoliosis. Pt walks 3 miles on the treadmill 2x/wk, which tends to make pain worse. Pt states that taking a break, not walking on the treadmill, makes the pain better. Pt rates his R lateral hip pain currently at 1/10, at worst the pain increases to 4-5/10 extending down into the knee and posterior R hip. Pt reports a history of LBP on the R side that comes and goes but unable to confirm if it is correlated to the hip pain. REHAB PROBLEM LIST: Increased Pain Decreased ROM Decreased Strength Decreased Endurance Decreased Function Decreased ADL's Decreased Mobility Decreased Gait PREVIOUS MEDICAL HISTORY: SEE EMR OBJECTIVE: Posture: Pt has a lateral left hip shift with R thoracolumbar scoliosis. Decreased lumbar lordosis. ROM: Lumbar ROM: Flexion: full, Extension: Full, R rotation: moderate restriction with pain on R side, L rotation: minimal restriction, R Sidebend: full, L sidebend: minimal with pain on the R Hip ROM: within functional limits Knee ROM: within functional limits Strength: LE MMT (R,L): Hip flexion: 4 (knee pain), 4, Hip extension: 3+ (knee pain), 3+, Hip Abd: 4+ (hip pain), 4+, Hip Add: 5 (knee pain), 5 Knee ext: 5- (hip pain), 4+, Knee flexion: 4+ (groin and knee pain), 4+ Ankle DF: 5 (hip pain), 5, Ankle PF: 4, 5 Glute Med: 2+, 3+ Special Tests: R RICKEY (+), R FADIR (-), R thigh thrust (-), R HELEN (+), Lateral hip compression (+) Mobility: Repeated lumbar motions:R sidebend: increased pain on L side, L sidebend increased pain in the middle lumbar region. Gait: R lateral trunk lean, B LE ER R>L Other Objective Findings: Lower Extremity Functional Scale (LEFS): 46.5/80 ASSESSMENT: Pt presents with signs and symptoms consistent with lumbar dysfunction, R trochanteric bursitis with associated R hip weakness and abnormality of gait. Physical therapy is indicated for this patient to address the above listed deficits to improve patient function with ADL's and recreational activities. Short Term Goals Pt will improve R glute med strength to a 4/5 to improve overall function and activity with ADL's and recreational activities in the next 6 weeks. Pt will improve LEFS score to a 55/80 within the next 6 weeks to improve overall function and activity with ADL's and recreational activities. Pt will improve lumbar ROM to full without pain in the next 3 weeks to improve overall function and activity with ADL's. Patient's Goals Pt's goals are to decrease pain to continue with respiratory rehab. PLAN: Patient to be seen for Manual Therapy/STM/MET Strengthening/condition Ice/Heat Range of Motion Spinal Stabilization Ultrasound Stretching Iontophoresis Neuromuscular Re-ed Closed Chain Program Electrical Stim Posture/Body mechanics Gait Trg/Balance Trg Biofeedback Home Exercise Program Mech./Manual Traction Therapeutic Activities 2x/Week for 6 Weeks If you have any questions, comments, or concerns about this report or plan, please contact me at . Thank you, Valarie Galvan, PT, DPT, CPT Shefali Martinez, SPT MTDD
--- NOTE | 2018-07-07 15:49 | PT PLAN OF CARE ---
Physician: Tong Poole MD Patient is being seen: 2-3x/Week Therapist: Valarie Galvan, PT, DPT, CLT Medical Diagnosis: R hip greater trochanteric bursitis, IT band irritation Treatment Diagnosis: R hip greater trochanteric bursitis, Lumbar dysfunction, Generalized weakness Date of Onset: 05/27/18 Date of Initial Evaluation: 06/02/18 Date patient was last seen: 07/07/18 Number of treatments: 10 Number of cancellations/No shows: 0 INTERVENTIONS: Manual Therapy/STM/MET Strengthening/condition Ice/Heat Range of Motion Spinal Stabilization Ultrasound Stretching Iontophoresis Neuromuscular Re-ed Closed Chain Program Electrical Stim Posture/Body mechanics Gait Trg/Balance Trg Biofeedback Home Exercise Program Mech./Manual Traction Therapeutic Activities GOALS: Pt will improve R gluteus medius strength to a 4/5 to improve overall function and activity with ADL's and recreational activities in the next 6 weeks. Pt will improve LEFS score to a 55/80 within the next 6 weeks to improve overall function and activity with ADL's and recreational activities. Pt will improve lumbar ROM to full without pain in the next 3 weeks to improve overall function and activity with ADL's. MET PATIENT'S GOAL: Pt's goals are to decrease pain to continue with respiratory rehab. Status of Patient's Goals: 1/3 MET Patient Compliance: Good Prognosis: Good Reasons for continuing therapy: Bill shows improved functional strength with gait and ADL's with gradually progressed decreased pain in the low back and lateral hip. Pt shows high variance in pain location between the back, groin and hip, however pain in all locations continues to progressively decrease. Gluteus medius strength remains limited but shows improvement with significant substitution with TFL and core muscles in many exercises. Further PT is indicated to continue progress towards functional goals. Posture: Pt has a lateral left hip shift with R thoracolumbar scoliosis. Decreased lumbar lordosis. ROM: Lumbar ROM: Full in all directions without pain Hip ROM: within functional limits Knee ROM: within functional limits Strength: LE MMT (R,L): Hip flexion: 4, 4, Hip extension: 4, 4, Hip Abd: 5, 4+ with groin pain, Hip Add: 5, 5Knee ext: 5, 5, Knee flexion: 5, 5 Ankle DF: 5, 5, Ankle PF: 4, 5 Glute Med: 3+, 3+ Special Tests: R RICKEY (+), R FADIR (-), R thigh thrust (-), R HELEN (+), Lateral hip compression (+) Outcome Measures: Lower Extremity Functional Scale (LEFS): 51/80 If you have any questions or concerns, please feel free to contact me at [phone]. Thank you, Valarie Galvan, PT, DPT, CLT MTDD
--- NOTE | 2018-08-30 18:28 | PT PLAN OF CARE ---
Physician: Tong Poole MD Patient is being seen: 2x/week Therapist: Linda Betts, PT Medical Diagnosis: R hip greater trochanteric bursitis, IT band irritation Treatment Diagnosis: R hip greater trochanteric bursitis, Lumbar dysfunction, Generalized weakness Date of Onset: 05/27/18 Date of Initial Evaluation: 06/02/18 Date patient was last seen: 08/30/18 Number of treatments: 20 Number of cancellations/No shows: 0 INTERVENTIONS: Therapeutic Exercise GOALS: Pt will improve R glut med strength to a 4/5 to improve overall function and activity with ADL's and recreational activities in the next 6 weeks. met Pt will improve LEFS score to a 55/80 within the next 6 weeks to improve overall function and activity with ADL's and recreational activities. progressing Pt will improve lumbar ROM to full without pain in the next 3 weeks to improve overall function and activity with ADL's. not met PATIENT'S GOAL: Pt's goals are to decrease pain to continue with respiratory rehab. progressing Patient Compliance: Excellent Prognosis: Good Reasons for continuing therapy: S: Amador denies R hip pain 3/10 with walking two miles on treadmill in pulmonary rehab, but rates R knee 3/10 (distal IT band). 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 LEFS still 51/80 a 36% impairment. O: R hip flexor 4+/5, otherwise LE's 5/5. Flexibility: R IT band remains tight. A/P: Amador Rankin needs to work with his IT band more. If you agree, we'll increase IT band stretching,continue strengthening, posture with his primary PT, 2x/week. Thank you. JULIETH
== END 2018-08-31 ==
LOC: PT 13:45
PROVIDERS: ATTEND Orthopaedic Surgery
DX: M70.61 Trochanteric bursitis, right hip (principal); M76.31 Iliotibial band syndrome, right leg
CPT/HCPCS: 97163

== ENCOUNTER 2018-09-22 13:45 | Outpatient (RCR) | payer MEDICARE, OTHER ==
[2016-10-25 09:56] VITALS: BMI 28.2
--- NOTE | 2018-09-09 14:52 | PT PLAN OF CARE ---
Physician: Tong Poole MD Patient is being seen: 2x/Week Therapist: Valarie Galvan, PT, DPT, CLT Medical Diagnosis: R hip greater trochanteric bursitis, IT band irritation Treatment Diagnosis: R hip greater trochanteric bursitis, Lumbar dysfunction, Generalized weakness Date of Onset: 05/27/18 Date of Initial Evaluation: 06/02/18 Date patient was last seen: 09/08/18 Number of treatments: 23 Number of cancellations/No shows: 1 INTERVENTIONS: Manual Therapy/STM/MET Strengthening/condition Ice/Heat Range of Motion Spinal Stabilization Ultrasound Stretching Iontophoresis Neuromuscular Re-ed Closed Chain Program Electrical Stim Posture/Body mechanics Gait Trg/Balance Trg Biofeedback Home Exercise Program Mech./Manual Traction Therapeutic Activities GOALS: Pt will improve R gluteus medius strength to a 4/5 to improve overall function and activity with ADL's and recreational activities in the next 6 weeks. MET Pt will improve LEFS score to a 55/80 within the next 6 weeks to improve overall function and activity with ADL's and recreational activities. Pt will improve lumbar ROM to full without pain in the next 3 weeks to improve overall function and activity with ADL's. MET PATIENT'S GOAL: Pt's goals are to decrease pain to continue with respiratory rehab. Status of Patient's Goals: 2/3 MET, 1/3 In Progress Patient Compliance: Good Prognosis: Good Reasons for continuing therapy: Jermaine Nolasco" shows excellent progress with near full resolution of bursitis as well as IT band dysfunction at this time. Amador shows continued progress towards improved strength and function with ADL's. Further PT is indicated for Amador to continue with strengthening progress to decrease future reinjury and dysfunction secondary to lingering hip instability. Despite resolution of hip pain pt occasionally has lingering fibular pain on the R side likely from previous tension on IT band. Posture: Pt has a lateral left hip shift with R thoracolumbar scoliosis. Decreased lumbar lordosis. ROM: Lumbar ROM: Full in all directions without pain Hip ROM: within functional limits Knee ROM: within functional limits Strength: LE MMT (R,L): Hip flexion: 4+, 5, Hip extension:5, 5, Hip Abd: 5, 5, Hip Add: 5, 5, Knee ext: 5, 5, Knee flexion: 5, 5 Ankle DF: 5, 5, Ankle PF: 5, 5 Outcome Measures: Lower Extremity Functional Scale (LEFS): 51/80 If you have any questions or concerns, please feel free to contact me at [phone]. Thank you, Valarie Galvan, PT, DPT, CLT MTDD
--- NOTE | 2018-09-23 18:23 | PT PLAN OF CARE ---
Physician: Tong Poole MD Patient is being seen: 2x/Week Therapist: Valarie Galvan, PT, DPT, CLT Medical Diagnosis: R hip greater troch bursitis, IT band irritation Treatment Diagnosis: R hip greater troch bursitis, Lumbar dysfunction, Generalized weakness Date of Onset: 05/27/18 Date of Initial Evaluation: 06/02/18 Date patient was last seen: 09/22/18 Number of treatments: 27 Number of cancellations/No shows: 1 INTERVENTIONS: Manual Therapy/STM/MET Strengthening/condition Ice/Heat Range of Motion Spinal Stabilization Ultrasound Stretching Iontophoresis Neuromuscular Re-ed Closed Chain Program Electrical Stim Posture/Body mechanics Gait Trg/Balance Trg Biofeedback Home Exercise Program Mech./Manual Traction Therapeutic Activities GOALS: Pt will improve R gluteus medius strength to a 4/5 to improve overall function and activity with ADL's and recreational activities in the next 6 weeks. MET Pt will improve LEFS score to a 55/80 within the next 6 weeks to improve overall function and activity with ADL's and recreational activities. Discontinued Pt will improve lumbar ROM to full without pain in the next 3 weeks to improve overall function and activity with ADL's. MET PATIENT'S GOAL: Pt's goals are to decrease pain to continue with respiratory rehab. Status of Patient's Goals: 2/3 MET, 1/3 Discontinued Patient Compliance: Good Prognosis: Good Reasons for discharge from therapy: Jermaine Nolasco" is to discharge from physical therapy at this time secondary to completion of 2/3 functional goals. Amador shows decreased bursitis symptoms with no longer any hip pain. Lingering stiffness at distal attachment of IT band remains present with increased activity, however pt is to continue with IT band stretching to maintain functional gains and further improve pain status. Amador shows significant improvements in strength and functional mobility and is to continue with HEP to maintain gains upon discharge. Posture: Pt has a lateral left hip shift with R thoracolumbar scoliosis. Decreased lumbar lordosis. ROM: Lumbar ROM: Full in all directions without pain Hip ROM: within functional limits Knee ROM: within functional limits Strength: LE MMT (R,L): Hip flexion: 4+, 5, Hip extension:5, 5, Hip Abd: 5, 5, Hip Add: 5, 5, Knee ext: 5, 5, Knee flexion: 5, 5 Ankle DF: 5, 5, Ankle PF: 5, 5 Outcome Measures: Lower Extremity Functional Scale (LEFS): 51/80 If you have any questions or concerns, please feel free to contact me at [phone]. Thank you, Valarie Galvan, PT, DPT, CLT MTDD
== END 2018-09-22 18:00 | disposition home or self-care (01) ==
LOC: PT 13:45
PROVIDERS: ATTEND Orthopaedic Surgery
DX: M70.61 Trochanteric bursitis, right hip (principal); M76.31 Iliotibial band syndrome, right leg

== ENCOUNTER 2018-11-24 13:45 | Outpatient (RCR) | payer MEDICARE, OTHER ==
[2016-10-25 09:56] VITALS: BMI 28.2
--- NOTE | 2018-10-12 18:20 | PT INITIAL EVALUATION ---
MEDICAL DIAGNOSIS: neck pain TREATMENT DIAGNOSIS: same DATE OF ONSET: [birth year] SUBJECTIVE: Amador Rankin presents to physical therapy with complaints of neck pain as a result of a few accidents in his childhood. He reports that he has his brother land on his head while sliding down a haystack and another incident in which he hit his head on the ceiling of the truck. He reports that following these two incidents he had increased sharp neck pain in which he felt like he broke his neck. He reports that he tried traction, which helped but the pain continually comes and goes. He reports that he feels like the injury is unchanging. He reports that he feels it on B sides of his neck and sometimes it feels like it goes into his shoulder blade region. Pain location is cervical spine around C5-7 lateral to R and L sided and described as achy, constant. Pain scale is 2 on a ten point pain scale. REHAB PROBLEM LIST: Increased Pain Decreased ROM Decreased Function PREVIOUS MEDICAL HISTORY: See EMR OCCUPATION: Retired OBJECTIVE: Posture: He demonstrates forward head, B round shoulders, flat back presentation. ROM: Cervical AROM: protrusion: major movement loss. flexion: NIL. retraction: moderate restriction loss with pain. extension: major movement loss with pain. Lateral flexion: R NIL. lateral flexion: L: moderate movement loss. rotation R: NIL. rotation L: moderate movement loss with pain. Palpation: TTP: cervical spine around C5-7 lateral to R and L sided Special Tests: Repeated RET: pain during the test with unchanging movements following. Repeated RET with extension: pain during the test with unchanging movement following. ASSESSMENT: Amador may benefit from skilled physical therapy to address his listed impairments to improve function and QOL. His current classification is dysfunction that is addressing the most restricted and painful movement, which is extension. He is independent with his specific exercise and posture. Short Term Goals 2 weeks: Pt will demonstrate directional preference to centralize and abolish his pain and if he has a directional preference his prognosis is excellent and if he does not have a directional preference then his prognosis is fair to poor. 4 weeks: If he has directional preference, he will demonstrate abolished cervical pain and increased cervical AROM in all directions to improve function and QOL. 6 weeks: If he has directional preference, he will demonstrated abolished pain and return to prior level of function. Patient's Goals see if something will help PLAN: Patient to be seen for Manual Therapy/STM/MET Strengthening/condition Range of Motion Spinal Stabilization Work Hardening/Cond Stretching Neuromuscular Re-ed Closed Chain Program Posture/Body mechanics Home Exercise Program Therapeutic Activities 2x/Week for 6 Weeks If you have any questions, comments, or concerns about this report or plan, please contact me at . Thank you, Chriss Duran, PT, DPT MTDD
--- NOTE | 2018-11-17 18:56 | PT PLAN OF CARE ---
Physician: Narendra Tobar MD Patient is being seen: 2x/week Therapist: Chriss Duran, PT, DPT Medical Diagnosis: neck pain Treatment Diagnosis: same Date of Onset: [birth year] Date of Initial Evaluation: 10/11/18 Date patient was last seen: 11/17/18 Number of treatments: 10 Number of cancellations/No shows: 1 INTERVENTIONS: Manual Therapy/STM/MET Strengthening/condition Range of Motion Spinal Stabilization Work Hardening/Cond Stretching Neuromuscular Re-ed Closed Chain Program Posture/Body mechanics Home Exercise Program Therapeutic Activities GOALS: 2 weeks: Pt will demonstrate directional preference to centralize and abolish his pain and if he has a directional preference his prognosis is excellent and if he does not have a directional preference then his prognosis is fair to poor. 4 weeks: If he has directional preference, he will demonstrate abolished cervical pain and increased cervical AROM in all directions to improve function and QOL. 6 weeks: If he has directional preference, he will demonstrated abolished pain and return to prior level of function. PATIENT'S GOAL: see if something will help Status of Patient's Goals: Progressed Patient Compliance: Good Prognosis: Fair Reasons for continuing therapy: This is a progress note for Jermaine Rankin. He reports that he is doing well. He reports that he feels like he is getting closer to being independent with his home exercise program. He reports that he continues to have stiffness at end ranges. He demonstrates minimal improvements in all of his cervical PROM-AROM but demonstrates hard end feels in all motions; therefore, I do not think that he will improve much more than he already has; therefore, once he is independent he will be discharged from PT to [facility] in the next few weeks. Posture: He demonstrates forward head, B round shoulders, flat back presentation. ROM: Cervical AROM: protrusion: major movement loss. flexion: NIL. retraction: moderate restriction loss with pain. extension: major movement loss with pain. Lateral flexion: R NIL. lateral flexion: L: moderate movement loss. rotation R: NIL. rotation L: moderate movement loss with pain. Palpation: TTP: cervical spine around C5-7 lateral to R and L sided Special Tests: Demonstrates dysfunction like classification with his presentation. If you have any questions, please contact me at [phone]. Thank you, Chriss Duran, PT, DPT [facility]
[~2018-11-24 13:45] MED LIST changes: -ROS10 FT; -ROS10 PO; +ROSU10TA FT; +ROSU10TA PO; -ROSU20TA23 PO; +ROSU20TA24 PO
[2018-11-24] MEDS ORDERED: SPIR1TAB28 PO (14:03)
--- NOTE | 2018-11-24 19:30 | PT PLAN OF CARE ---
Physician: Narendra Tobar MD Patient is being seen: 2x/week Therapist: Chriss Duran, PT, DPT Medical Diagnosis: neck pain Treatment Diagnosis: same Date of Onset: [birth year] Date of Initial Evaluation: 10/11/18 Date patient was last seen: 11/24/18 Number of treatments: 12 Number of cancellations/No shows: 1 INTERVENTIONS: Manual Therapy/STM/MET Strengthening/condition Range of Motion Spinal Stabilization Work Hardening/Cond Stretching Neuromuscular Re-ed Closed Chain Program Posture/Body mechanics Home Exercise Program Therapeutic Activities GOALS: 2 weeks: Pt will demonstrate directional preference to centralize and abolish his pain and if he has a directional preference his prognosis is excellent and if he does not have a directional preference then his prognosis is fair to poor. 4 weeks: If he has directional preference, he will demonstrate abolished cervical pain and increased cervical AROM in all directions to improve function and QOL. 6 weeks: If he has directional preference, he will demonstrated abolished pain and return to prior level of function. PATIENT'S GOAL: see if something will help Status of Patient's Goals: Progressed Patient Compliance: Good Prognosis: Fair Reasons for continuing therapy: This is a discharge note for Jermaine Rankin. He reports that he is doing well. He reports that he feels like he is independent with his home exercise program. He reports that he continues to have stiffness at end ranges. He demonstrates minimal improvements in all of his cervical PROM-AROM but demonstrates hard end feels in all motions; therefore, I do not think that he will improve much more than he already has. He is independent with his home exercise program and as a result, he will be discharged from PT to [facility]. Posture: He demonstrates forward head, B round shoulders, flat back presentation. ROM: Cervical AROM: protrusion: major movement loss. flexion: NIL. retraction: moderate restriction loss with pain. extension: major movement loss with pain. Lateral flexion: R NIL. lateral flexion: L: moderate movement loss. rotation R: NIL. rotation L: moderate movement loss with pain. Palpation: TTP: cervical spine around C5-7 lateral to R and L sided Special Tests: Demonstrates dysfunction like classification with his presentation. If you have any questions, please contact me at [phone]. Thank you, Chriss Duran, PT, DPT [facility]
== END 2018-11-24 18:00 | disposition home or self-care (01) ==
LOC: PT 13:45
PROVIDERS: ATTEND Internal Medicine
DX: M54.2 Cervicalgia (principal)
CPT/HCPCS: 97161

== ENCOUNTER 2019-02-10 01:03 | Day surgery (SDC) | payer MEDICARE, OTHER ==
[2016-10-25 09:56] VITALS: Ht 167.6 cm; Wt 76.2 kg
[~2019-02-10] VITALS: Ht 167.6 cm; Wt 76.2 kg
[2019-02-10] MEDS ORDERED: OPHTHALMIC PROCEDURE 2 OS PRN ×2 (06:00)
[2019-02-10] MEDS ORDERED: OPHTHALMIC PROCEDURE 1 OS PRN (06:00)
[2019-02-10] MEDS ORDERED: acetaZOLAMIDE 500 MG CAPCR PO ONE (06:00)
[2019-02-10] MEDS ORDERED: LIDOCAINE/SOD BICARB 8.4% SYR ID ONE (13:00)
[2019-02-10] MEDS ORDERED: NORMOSOL R SOLN(*) 1000 ML BAG 1,000 ML IV PRN (13:00)
[2019-02-10 14:00] VITALS: BP 117/68
[2019-02-10 15:08] VITALS: BP 123/69
--- NOTE | 2019-02-11 08:41 | OPERATIVE REPORT 1 ---
EVENT DATE: February 10, 2019 SURGEON: Mahamed Ortiz MD ANESTHESIOLOGIST: Raphael Briceño MD ANESTHESIA: MAC PREOPERATIVE DIAGNOSIS Cataract, left eye. POSTOPERATIVE DIAGNOSIS Cataract, left eye. PROCEDURE Phacoemulsification of cataractous lens with implantation of an intraocular lens, left eye. DESCRIPTION OF PROCEDURE The risks and benefits and alternatives were carefully discussed with the patient, and preoperative consent was obtained. The patient was brought to the operating room, after receiving topical anesthetic. The patient was prepped and draped using sterile technique in the usual manner. A stab incision was made and the chamber was inflated with preservative-free lidocaine. DuoVisc was injected to inflate the chamber. A 2.2 mm blade was used to enter the anterior chamber. Utrata forceps were used to tear a circular capsulorrhexis. BSS was used to hydrodissect the nucleus. Phaco tip was introduced and the nucleus was chopped into four quadrants. Each quadrant was removed. The I/A tip was used to remove the cortex. The bag was inflated with ProVisc. The intraocular lens was injected into the capsular bag. The I/A tip was used to remove the ProVisc. The wound was found to be watertight. Vigamox, Nevanac and Maxitrol ointment were placed in the patient's eye. The patient's eye was patched and the patient was taken to the recovery room in stable condition. The patient was examined in the recovery room and found to be stable, prior to release from the hospital. JULIETH
[2019-02-24] MEDS ORDERED: WARF5TAB23 PO (10:07)
== END 2019-02-10 15:30 | disposition home or self-care (01) ==
LOC: OR 01:03
PROVIDERS: ATTEND Ophthalmology
DX: H25.12 Age-related nuclear cataract, left eye (principal)
CPT/HCPCS: 66984; A9270; V2632